=== PATIENT | female | born 1990 | race African-American/Black ===

== ENCOUNTER 2016-07-02 21:23 | Emergency (ER) | payer OTHER ==
[~2016-07-02] VITALS: Ht 160 cm; Wt 71.6 kg
[2016-07-02] MEDS ORDERED: PERCOCET 5/325M1 TAB PO (22:26)
[2016-07-02 22:43] VITALS: BP 144/88
== END 2016-07-02 22:43 | disposition home or self-care (01) | DRG 605 ==
LOC: ED 21:23
DX: S80.01XA Contusion of right knee, initial encounter (principal); W22.8XXA Striking against or struck by other objects, initial encounter; Y92.89 Other specified places as the place of occurrence of the external cause